=== PATIENT | female | born 1980 | race African-American/Black ===

== ENCOUNTER 2017-01-07 13:38 | Emergency (ER) | payer OTHER ==
[~2017-01-07] VITALS: Ht 152.4 cm; Wt 87.5 kg
[2017-01-07 13:41] VITALS: Ht 152.4 cm; Wt 87.5 kg
[2017-01-07] MEDS ORDERED: LIDOCAINE 1% (MDV) 20 ML INJ SC ONE (15:30)
--- NOTE | 2017-01-07 15:35 | ERA ---
ER Documentation Chief Complaint Date/Time DATE: 01/07/17 TIME: 15:29 Chief Complaint RIGHT EAR LOBE ABCESS, HAS INSIDE EAR PAIN, SEEN AT [facility] X 2 HPI 36-year-old female with a chief complaint of ear pain. Patient had a pimple on her right ear 3 weeks ago. Patient tried to pop it and used different remedies to try to make it go away. 2 weeks ago area started to become inflamed. Area was nontender. Area was drained 2 weeks ago [place] and diagnosis abscess. Given antibiotics. No resolution. Patient went to [facility] again 1 day ago. Diagnosed with auricular hematoma. Was drained. Pressure dressing was applied. Patient to call pressure dressing and the area has again swollen. Has not taken any medications to get the symptoms to go away since. Denies fever, chills, headache, changes in hearing or ear discomfort. Patient has no other complaints and describes no other associated manifestations. Nursing notes have been reviewed and are consistent with history given. ROS All systems reviewed and are negative except as per history of present illness. Physical Exam Vitals Vital Signs Date Time Temp Pulse Resp B/P Pulse Ox O2 Delivery O2 Flow Rate FiO2 01/07/17 13:41 98.4 66 18 113/68 99 Physical Exam Const: Healthy-appearing. Well-nourished. Well-developed. No acute distress. Ears: Right auricular hematoma extending down to the antihelix. Mild tenderness. Left ear unremarkable. External auditory ear canals unremarkable. Tympanic membranes visualized with light cone reflex bilaterally. No discharge. Oral: No oral edema visualized. Mucous membranes moist and pink. Neck: No cervical lymphadenopathy, masses or goiter palpated. Non- tender. Trachea midline. Supple ~ No meningismus. Neur: Finger-rub test unremarkable. Awake, alert and oriented x3. Neurovascularly intact bilaterally. Pulm: No dyspnea, stridor, tripoding or drooling. Good air movement. Clear to auscultation bilaterally. Nose: Normal external nose; no discharge, septal deviation, or sinus tenderness. Head: Normocephalic, Atraumatic. Eyes: Non-injected; No scleral erythema, discharge or foreign body. EOMI and OLYA bilaterally. Cardio: Regular rate and rhythm; No murmurs, gallops or rubs auscultated. Radial and posterior tibial pulses 2+ bilaterally. Capillary refill less than 2 seconds. Abd: Soft, non tender, non distended. No guarding, masses. Normal bowel sounds. No McBurney's point or suprapubic tenderness. MS: Normal motor strength, normal tone with gross examination. Skin: No petechiae or rashes. Good turgor. Back: No midline, flank or CVA tenderness. Ext: No cyanosis or edema. Normal movement of all extremities grossly observed. Psych: Normal Mood and Affect. Results 24 hrs Current Medications Medications (Trade) Dose Ordered Sig/Khushi Route PRN Reason Start Time Stop Time Status Last Admin Dose Admin Lidocaine (Xylocaine 1% (Mdv) 20 ml) 20 ml ONCE ONCE SC 01/07/17 15:30 01/07/17 15:31 DC Procedures/MDM 36-year-old female presenting with right ear discomfort as described in history and physical. Patient signs and symptoms are most consistent with auricular hematoma. I will suspicion for malignant otitis externa, abscess, or other bacterial involvement. Patient last had hematoma drained yesterday but did not keep the pressure dressing applied. Today area was anesthetized with 2 mL of lidocaine without epi. The area was drained and 1.5 milliliters of blood was expressed. The size of the hematoma decreased significantly suggesting air was extracted along with the blood. Pressure dressing was applied by myself and the nursing staff. Gauze pads were used behind and in front of the ear to apply firm pressure yet avoiding skin to skin contact to avoid necrosis. I given the patient referral for ENT. I have educated her on the necessity to keep the pressure dressing applied as well as the course of management and the possibility of hematoma returning. Patient has verbally responded that she understands and agrees to the plan of management. Patient's vitals are stable and her current condition is appropriate for discharge. Patient will be discharged with discharge shortness and return precautions. Departure Condition: Stable Additional Instructions: Follow-up with ENT next 2 days. If you have any questions regarding medications , ask your pharmacist or us before you leave. If any adverse reactions occur while taking your medications, discontinue the treatment and return to the emergency department immediately. Take your medications as directed, and complete the entire course of treatment. JULIUS VIRGEN PA-C Jan 07, 2017 15:35
== END 2017-01-07 16:41 | disposition home or self-care (01) ==
LOC: FTE 13:38
DX: H60.01 Abscess of right external ear (principal)
CPT/HCPCS: Z7502; Z7610; 99282